=== PATIENT | female | born 1985 | race Two or more races ===

== ENCOUNTER 2024-12-25 14:48 | Emergency (ER) | payer SELFPAY ==
[~2024-12-25] VITALS: Ht 167.6 cm; Wt 59.9 kg
[2024-12-25] MEDS ORDERED: KETOROLAC TROMETHAMINE 15 MG/ML VIAL ONE (15:28)
[2024-12-25] MEDS ORDERED: IOHEXOL-300 100 ML VIAL IV ONE (15:44)
[2024-12-25] MEDS ORDERED: IV NS 0.9% 250 ML IV ONE (15:44)
[2024-12-25 15:50] LABS: PLATELET COUNT (AUTO) 341 K/uL (150-450); RED BLOOD CELL COUNT(AUTO) 4.36 MIL/uL (4.0-5.2); RED CELL DISTRIBUTION WIDTH 13.1 % (11.5-15.0); WHITE BLOOD COUNT (AUTO) 5.0 K/uL (4.3-11.0)
[2024-12-25] MEDS: KETOROLAC TROMETHAMINE 15 MG/ML VIAL IV ONE (15:55)
[2024-12-25 16:39] LABS: SODIUM SERUM 138.0 mmol/L (136-145)
[2024-12-25 16:40] LABS: CALCIUM, SERUM 8.9 mg/dL (8.5-10.1); CREATININE 0.9 mg/dL (0.6-1.3); UREA NITROGEN, BLOOD 9.0 mg/dL (7-18)
[2024-12-25 16:41] LABS: ASPARTATE AMINOTRANSFERASE 16.0 U/L (15-37); TOTAL PROTEIN, SERUM 8.6 g/dL (6.4-8.2)
[2024-12-25 17:36] LABS: APPEARANCE,URINE CLEAR (CLEAR); BLOOD, URINE Negative Ery/uL (NEGATIVE); LEUKOCYTE ESTERASE ,URINE Negative (NEGATIVE); NITRITE, URINE NEGATIVE (NEGATIVE); UGLUCOSE Negative (NEGATIVE)
[2024-12-25 17:40] LABS: PREGNANCY TEST URINE QUAL NEGATIVE (NEGATIVE)
[2024-12-25] MEDS ORDERED: METH-647 PO (17:41)
[2024-12-25 17:55] VITALS: BP 118/66; TEMP 98.3; O2SAT 98
== END 2024-12-25 17:55 | disposition home or self-care (01) ==
LOC: ER 14:51
DX: R10.31 Right lower quadrant pain (principal); R10.11 Right upper quadrant pain; R16.0 Hepatomegaly, not elsewhere classified
CPT/HCPCS: 99285; 74177; 96374; 85025; 80048; 83690; 80076; 84703; 81003; 36415; J1885; J7050; Q9967